=== PATIENT | female | born 1970 | race Caucasian/White ===

== ENCOUNTER 2019-12-14 09:26 | Inpatient (IN) | payer MEDICAID ==
[~2019-12-14] VITALS: Ht 180.3 cm; Wt 107.5 kg
--- NOTE | 2019-12-14 10:15 | NUR ---
"JAUNDICE" SKIN OBJECTIVELY YELLOW TINTED, SCLEARA QUITE DARK. DARK URINE, RIGHT SIDE ABD PAIN. QUIT DRINKING 2 WEEKS AGO DRANK ROUGHLY 2 BOTTLES OF WINE FOR THE LAST 12 YEARS DID NOT DETOX DENIES POTENTIAL HEP C LIFESTYLE EXPOSURE
--- NOTE | 2019-12-14 10:24 | NUR ---
UA OBTAINED PIV STARTED FROM WHICH LABS WERE DRAWN ULTRASOUND AT BEDSIDE AT 1020A
[2019-12-14 10:30] LABS: MEAN CORPUSCULAR HEMOGLOBIN 37.2 pg (27.0-34.8); MEAN CORPUSCULAR HGB CONC 33.6 g/dL (32.4-35.8); MEAN CORPUSCULAR VOLUME 110.7 fL (80-100); MEAN PLATELET VOLUME 8.5 fL (7.4-10.4); PLATELET COUNT 233 x10^3/uL (130-400); RED BLOOD COUNT 3.28 x10^6/uL (3.82-5.3); RED CELL DISTRIBUTION WIDTH 16.2 % (9.6-15.2)
[2019-12-14 10:44] LABS: ALANINE AMINOTRANSFERASE 63 U/L (12-78); ANION GAP 11 mmol/L (5-15); CALCIUM 8.2 mg/dL (8.5-10.1); CHLORIDE 100 mmol/L (98-107)
[2019-12-14 10:47] LABS: MICROSCOPIC INDICATED
[2019-12-14 10:49] LABS: BASOPHILS # (AUTO) 0.01 x10^3/uL (0-0.1); BASOPHILS % (AUTO) 0 % (0-1); EOSINOPHILS # (AUTO) 0.06 x10^3/uL (0-0.4); EOSINOPHILS % (AUTO) 1 % (1-7); LYMPHOCYTES # (AUTO) 1.07 x10^3/uL (1-3.4); LYMPHOCYTES % (AUTO) 9 % (22-44); MD SCAN; MONOCYTES # (AUTO) 1.09 x10^3/uL (0.2-0.8); MONOCYTES % (AUTO) 9 % (2-9); NEUTROPHILS # (AUTO) 10.34 x10^3/uL (1.8-6.8); NEUTROPHILS % (AUTO) 82 % (42-75)
[2019-12-14 10:55] LABS: ALKALINE PHOSPHATASE 155 U/L (45-117)
[2019-12-14 11:00] LABS: BILIRUBIN,TOTAL 25.9 mg/dL (0.2-1.0)
[2019-12-14 11:03] LABS: CREATININE 2.51 mg/dL (0.55-1.02); TOTAL PROTEIN 7.8 g/dL (6.4-8.2)
[2019-12-14] MEDS ORDERED: SODIUM CHLORIDE 0.9% 1,000ML IVBOLUS ONE (12:30)
[2019-12-14] MEDS: SODIUM CHLORIDE 0.9% 1,000 ML IV SCH ×2 (13:00→23:00)
--- NOTE | 2019-12-14 13:08 | NUR ---
Hospitalist at bedside Moved to hospital bed
[2019-12-14] MEDS ORDERED: LORazepam 2 MG/ML, 1ML IVPush PRN ×2 (13:30→15:00)
[2019-12-14] MEDS ORDERED: SODIUM CHLORIDE FLUSH 10ML SYR IVF PRN (13:30)
[2019-12-14] MEDS ORDERED: SODIUM CHLORIDE 0.9% 1,000 ML IV ONE (13:30)
[2019-12-14] MEDS ORDERED: LORazepam 2 MG/ML, 1ML ONE (13:31)
[2019-12-14 13:44] LABS: IRON LEVEL 76 mcg/dL (50-170); TOTAL IRON BINDING CAPACITY 72 mcg/dL (250-450)
[2019-12-14 13:47] LABS: % IRON SATURATION 106 % (20-55)
[2019-12-14] MEDS ORDERED: POTASSIUM CHLORIDE 20 MEQ PACKET ONE (14:34)
[2019-12-14] MEDS: PROPRANOLOL 10 MG TABLET PO SCH ×2 (15:33→21:18)
--- NOTE | 2019-12-14 15:34 | NUR ---
spoke with dr. floyd: Ok to give propanolol (eventhough b/p 100/70, hr 90) as it will help her portal hypertension, patient is allowed to eat (May change once GI sees her), she will order he pain medicine and will change potassium repletion order for dosing now
[2019-12-14] MEDS ORDERED: OXYcodone IR 5MG TABLET ONE (15:38)
--- NOTE | 2019-12-14 15:47 | NUR ---
medicated per emar for abd pain at 12/04
--- NOTE | 2019-12-14 15:50 | NUR ---
attempted to call report x2. Inpatient Rn otherwise occupied. Will try to call back shortly
[2019-12-14] MEDS ORDERED: ONDANSETRON ODT 4 MG PO PRN (16:00)
[2019-12-14] MEDS ORDERED: OXYcodone IR 5MG TABLET PO PRN ×2 (16:00→23:45)
[2019-12-14] MEDS: POTASSIUM CHLORIDE 20 MEQ PACKET PO SCH (16:06)
[2019-12-14] MEDS ORDERED: ALBUMIN HUMAN 25% 100 ML IV ONE (16:30)
[2019-12-14 17:27] LABS: INTERNATIONAL NORMALIZED RATIO 2.25 (0.93-1.1); PROTHROMBIN TIME 23.4 Seconds (9.6-11.5)
[2019-12-14 19:04] VITALS: BP 99/69
[2019-12-15 00:51] VITALS: BP 103/65
[2019-12-15 05:56] LABS: MEAN CORPUSCULAR HEMOGLOBIN 37.2 pg (27.0-34.8); MEAN CORPUSCULAR HGB CONC 33.4 g/dL (32.4-35.8); MEAN CORPUSCULAR VOLUME 111.3 fL (80-100); MEAN PLATELET VOLUME 8.4 fL (7.4-10.4); PLATELET COUNT 189 x10^3/uL (130-400); RED BLOOD COUNT 2.67 x10^6/uL (3.82-5.3); RED CELL DISTRIBUTION WIDTH 15.5 % (9.6-15.2)
[2019-12-15 06:06] LABS: ALBUMIN 1.8 g/dL (3.4-5.0); ANION GAP 8 mmol/L (5-15); CALCIUM 7.3 mg/dL (8.5-10.1); CHLORIDE 100 mmol/L (98-107)
[2019-12-15 06:16] VITALS: BP 100/60
[2019-12-15] MEDS: PROPRANOLOL 10 MG TABLET PO SCH ×3 (06:17→21:03)
[2019-12-15 06:19] LABS: ALANINE AMINOTRANSFERASE 52 U/L (12-78); ALKALINE PHOSPHATASE 122 U/L (45-117)
[2019-12-15 06:24] LABS: TOTAL PROTEIN 6.5 g/dL (6.4-8.2)
[2019-12-15 06:26] LABS: BASOPHILS # (AUTO) 0.18 x10^3/uL (0-0.1); BASOPHILS % (AUTO) 2 % (0-1); EOSINOPHILS # (AUTO) 0.09 x10^3/uL (0-0.4); EOSINOPHILS % (AUTO) 1 % (1-7); LYMPHOCYTES # (AUTO) 1.29 x10^3/uL (1-3.4); LYMPHOCYTES % (AUTO) 12 % (22-44); MD SCAN; MONOCYTES % (AUTO) 13 % (2-9); NEUTROPHILS # (AUTO) 7.68 x10^3/uL (1.8-6.8); NEUTROPHILS % (AUTO) 72 % (42-75)
[2019-12-15] MEDS ORDERED: POTASSIUM CHLORIDE 20 MEQ PACKET PO SCH (08:00)
[2019-12-15] MEDS: POTASSIUM CHLORIDE 20 MEQ PACKET PO SCH (08:52)
[2019-12-15] MEDS: SODIUM CHLORIDE 0.9% 1,000 ML IV SCH ×2 (12:07→21:03)
[2019-12-15 13:14] VITALS: BP 91/55
[2019-12-15 16:20] LABS: POTASSIUM,URINE RANDOM 59 mmol/L
[2019-12-15 16:21] LABS: MICROSCOPIC INDICATED
[2019-12-15 16:43] LABS: CHLORIDE,URINE RANDOM < 10 mmol/L; SODIUM,URINE RANDOM < 5 mmol/L
[2019-12-15 20:25] VITALS: BP 96/59
[2019-12-16 01:34] VITALS: BP 96/58
[2019-12-16 04:52] LABS: BASOPHILS # (AUTO) 0.08 x10^3/uL (0-0.1); BASOPHILS % (AUTO) 1 % (0-1); EOSINOPHILS # (AUTO) 0.04 x10^3/uL (0-0.4); EOSINOPHILS % (AUTO) 0 % (1-7); LYMPHOCYTES # (AUTO) 1.16 x10^3/uL (1-3.4); LYMPHOCYTES % (AUTO) 10 % (22-44); MD NO; MEAN CORPUSCULAR HEMOGLOBIN 38.1 pg (27.0-34.8); MEAN CORPUSCULAR HGB CONC 34.7 g/dL (32.4-35.8); MEAN CORPUSCULAR VOLUME 109.8 fL (80-100); MEAN PLATELET VOLUME 8.9 fL (7.4-10.4); MONOCYTES # (AUTO) 1.39 x10^3/uL (0.2-0.8); MONOCYTES % (AUTO) 12 % (2-9); NEUTROPHILS # (AUTO) 8.97 x10^3/uL (1.8-6.8); NEUTROPHILS % (AUTO) 77 % (42-75); PLATELET COUNT 181 x10^3/uL (130-400); RED BLOOD COUNT 2.82 x10^6/uL (3.82-5.3)
[2019-12-16 05:00] LABS: ALANINE AMINOTRANSFERASE 55 U/L (12-78); ALBUMIN 1.7 g/dL (3.4-5.0); ANION GAP 10 mmol/L (5-15); CALCIUM 7.3 mg/dL (8.5-10.1); CHLORIDE 98 mmol/L (98-107); IRON LEVEL 62 mcg/dL (50-170)
[2019-12-16 05:14] LABS: % IRON SATURATION 91 % (20-55); ALKALINE PHOSPHATASE 125 U/L (45-117); TOTAL IRON BINDING CAPACITY 68 mcg/dL (250-450)
[2019-12-16 05:20] LABS: CREATININE 3.21 mg/dL (0.55-1.02)
[2019-12-16 05:21] LABS: TOTAL PROTEIN 6.5 g/dL (6.4-8.2)
[2019-12-16 05:23] LABS: BILIRUBIN,TOTAL 24.3 mg/dL (0.2-1.0)
[2019-12-16 06:31] VITALS: BP 102/61
[2019-12-16] MEDS: SODIUM CHLORIDE 0.9% 1,000 ML IV SCH (06:33)
[2019-12-16] MEDS: PROPRANOLOL 10 MG TABLET PO SCH (06:34)
[2019-12-16] MEDS: prednisOLONE 15 MG/5 ML ORAL SOLN PO SCH (07:35)
[2019-12-16] MEDS: POTASSIUM CHLORIDE 20 MEQ PACKET PO SCH (09:31)
[2019-12-16] MEDS ORDERED: OCTREOTIDE 500 MCG in SODIUM CHLORIDE 0.9% 99 ML IV PRN (13:30)
[2019-12-16 13:59] VITALS: BP 99/60
[2019-12-16] MEDS ORDERED: OCTREOTIDE 50 MCG/ML, 1ML (0.05MG/ML) IVPush ONE (14:00)
[2019-12-16] MEDS: MIDODRINE 5 MG TABLET PO SCH ×3 (14:01→21:01)
[2019-12-16] MEDS ORDERED: OCTREOTIDE 100MCG/ML, 1ML (0.1MG/ML) IVPush ONE (16:00)
[2019-12-16 19:55] VITALS: BP 105/67
[2019-12-16 20:59] VITALS: BP 107/67
[2019-12-17 01:27] VITALS: BP 93/60
[2019-12-17 06:01] LABS: ALANINE AMINOTRANSFERASE 57 U/L (12-78); ALBUMIN 1.6 g/dL (3.4-5.0); ANION GAP 11 mmol/L (5-15); CALCIUM 7.3 mg/dL (8.5-10.1); CHLORIDE 100 mmol/L (98-107)
[2019-12-17 06:13] LABS: ALKALINE PHOSPHATASE 125 U/L (45-117)
[2019-12-17 06:14] LABS: CREATININE 3.27 mg/dL (0.55-1.02); TOTAL PROTEIN 6.3 g/dL (6.4-8.2)
[2019-12-17 06:16] LABS: BILIRUBIN,TOTAL 22.9 mg/dL (0.2-1.0)
[2019-12-17 07:04] VITALS: BP 102/65
[2019-12-17] MEDS: prednisOLONE 15 MG/5 ML ORAL SOLN PO SCH ×2 (08:00→08:50)
[2019-12-17] MEDS: POTASSIUM CHLORIDE 20 MEQ PACKET PO SCH (08:47)
[2019-12-17] MEDS: MIDODRINE 5 MG TABLET PO SCH ×3 (08:47→22:57)
[2019-12-17 14:30] VITALS: BP 102/66
[2019-12-17 16:02] VITALS: BP 101/62
[2019-12-17] MEDS: OCTREOTIDE 100MCG/ML, 1ML (0.1MG/ML) SQ SCH ×2 (16:49→22:58)
[2019-12-17 20:53] VITALS: BP 107/68
[2019-12-17 22:54] VITALS: BP 103/67
[2019-12-18 01:45] VITALS: BP 112/67
[2019-12-18 05:55] LABS: MEAN CORPUSCULAR HEMOGLOBIN 37.8 pg (27.0-34.8); MEAN CORPUSCULAR HGB CONC 34.4 g/dL (32.4-35.8); MEAN PLATELET VOLUME 8.5 fL (7.4-10.4); PLATELET COUNT 222 x10^3/uL (130-400); RED CELL DISTRIBUTION WIDTH 15.2 % (9.6-15.2)
[2019-12-18 06:02] LABS: ALBUMIN 1.6 g/dL (3.4-5.0); ANION GAP 12 mmol/L (5-15); CALCIUM 7.7 mg/dL (8.5-10.1); CHLORIDE 100 mmol/L (98-107)
[2019-12-18 06:07] LABS: ALANINE AMINOTRANSFERASE 61 U/L (12-78); ALKALINE PHOSPHATASE 121 U/L (45-117)
[2019-12-18 06:13] LABS: CREATININE 2.98 mg/dL (0.55-1.02); TOTAL PROTEIN 6.4 g/dL (6.4-8.2)
[2019-12-18 06:29] LABS: BASOPHILS # (AUTO) 0.04 x10^3/uL (0-0.1); BASOPHILS % (AUTO) 0 % (0-1); EOSINOPHILS # (AUTO) 0.05 x10^3/uL (0-0.4); EOSINOPHILS % (AUTO) 0 % (1-7); LYMPHOCYTES # (AUTO) 1.72 x10^3/uL (1-3.4); LYMPHOCYTES % (AUTO) 12 % (22-44); MD SCAN; MONOCYTES # (AUTO) 1.44 x10^3/uL (0.2-0.8); MONOCYTES % (AUTO) 10 % (2-9); NEUTROPHILS # (AUTO) 11.15 x10^3/uL (1.8-6.8); NEUTROPHILS % (AUTO) 77 % (42-75)
[2019-12-18 07:54] VITALS: BP 98/60
[2019-12-18] MEDS: prednisOLONE 15 MG/5 ML ORAL SOLN PO SCH (09:36)
[2019-12-18] MEDS: MIDODRINE 5 MG TABLET PO SCH ×3 (09:37→20:28)
[2019-12-18] MEDS: OCTREOTIDE 100MCG/ML, 1ML (0.1MG/ML) SQ SCH ×3 (09:37→20:32)
[2019-12-18] MEDS: SODIUM BICARBONATE 650 MG TABLET PO SCH ×2 (12:04→20:28)
[2019-12-18 13:55] VITALS: BP 106/68
[2019-12-18 20:09] VITALS: BP 106/67
[2019-12-19] VITALS (10 sets, daily range): BP systolic 96–126; BP diastolic 59–72
[2019-12-19 05:27] LABS: INTERNATIONAL NORMALIZED RATIO 2.06 (0.93-1.1); PROTHROMBIN TIME 21.4 Seconds (9.6-11.5)
[2019-12-19 05:30] LABS: ANION GAP 11 mmol/L (5-15); CALCIUM 7.8 mg/dL (8.5-10.1); CHLORIDE 101 mmol/L (98-107)
[2019-12-19 05:36] LABS: MEAN CORPUSCULAR HEMOGLOBIN 38.1 pg (27.0-34.8); MEAN PLATELET VOLUME 8.3 fL (7.4-10.4); PLATELET COUNT 219 x10^3/uL (130-400); RED BLOOD COUNT 3.01 x10^6/uL (3.82-5.3); RED CELL DISTRIBUTION WIDTH 14.9 % (9.6-15.2)
[2019-12-19 06:06] LABS: BASOPHILS # (AUTO) 0.05 x10^3/uL (0-0.1); BASOPHILS % (AUTO) 0 % (0-1); EOSINOPHILS % (AUTO) 0 % (1-7); LYMPHOCYTES # (AUTO) 1.29 x10^3/uL (1-3.4); LYMPHOCYTES % (AUTO) 8 % (22-44); MD SCAN; MONOCYTES # (AUTO) 1.75 x10^3/uL (0.2-0.8); MONOCYTES % (AUTO) 11 % (2-9); NEUTROPHILS # (AUTO) 12.31 x10^3/uL (1.8-6.8); NEUTROPHILS % (AUTO) 80 % (42-75)
[2019-12-19 06:11] LABS: CREATININE 2.71 mg/dL (0.55-1.02)
[2019-12-19] MEDS ORDERED: CHLORHEXIDINE 15 ML UDC MM ONE (06:30)
[2019-12-19] MEDS: prednisOLONE 15 MG/5 ML ORAL SOLN PO SCH (08:00)
[2019-12-19] MEDS: MIDODRINE 5 MG TABLET PO SCH ×3 (09:00→21:05)
[2019-12-19] MEDS: OCTREOTIDE 100MCG/ML, 1ML (0.1MG/ML) SQ SCH ×3 (09:00→21:06)
[2019-12-19] MEDS: SODIUM BICARBONATE 650 MG TABLET PO SCH ×2 (09:00→21:05)
[2019-12-19] MEDS ORDERED: PROPOFOL 10 MG/ML, 20ML ONE (09:31)
[2019-12-20 01:00] VITALS: BP 107/56
[2019-12-20 06:06] LABS: CHLORIDE 105 mmol/L (98-107)
[2019-12-20 06:09] LABS: MEAN CORPUSCULAR HEMOGLOBIN 37.7 pg (27.0-34.8); MEAN CORPUSCULAR HGB CONC 33.7 g/dL (32.4-35.8); MEAN CORPUSCULAR VOLUME 111.8 fL (80-100); MEAN PLATELET VOLUME 8.1 fL (7.4-10.4); PLATELET COUNT 156 x10^3/uL (130-400); RED BLOOD COUNT 2.67 x10^6/uL (3.82-5.3); RED CELL DISTRIBUTION WIDTH 15.3 % (9.6-15.2)
[2019-12-20 06:15] LABS: ALANINE AMINOTRANSFERASE 64 U/L (12-78); ALBUMIN 1.7 g/dL (3.4-5.0); ALKALINE PHOSPHATASE 112 U/L (45-117); ANION GAP 11 mmol/L (5-15); CALCIUM 7.9 mg/dL (8.5-10.1)
[2019-12-20 06:18] LABS: CREATININE 2.26 mg/dL (0.55-1.02); TOTAL PROTEIN 5.9 g/dL (6.4-8.2)
[2019-12-20 06:35] LABS: BASOPHILS # (AUTO) 0.05 x10^3/uL (0-0.1); BASOPHILS % (AUTO) 1 % (0-1); EOSINOPHILS # (AUTO) 0.05 x10^3/uL (0-0.4); EOSINOPHILS % (AUTO) 1 % (1-7); LYMPHOCYTES # (AUTO) 1.56 x10^3/uL (1-3.4); LYMPHOCYTES % (AUTO) 16 % (22-44); MD SCAN; MONOCYTES # (AUTO) 0.86 x10^3/uL (0.2-0.8); MONOCYTES % (AUTO) 9 % (2-9); NEUTROPHILS % (AUTO) 74 % (42-75)
[2019-12-20 08:42] VITALS: BP 105/64
[2019-12-20] MEDS: MIDODRINE 5 MG TABLET PO SCH ×3 (09:19→20:47)
[2019-12-20] MEDS: prednisOLONE 15 MG/5 ML ORAL SOLN PO SCH (09:19)
[2019-12-20] MEDS: OCTREOTIDE 100MCG/ML, 1ML (0.1MG/ML) SQ SCH ×3 (09:19→20:47)
[2019-12-20] MEDS: SODIUM BICARBONATE 650 MG TABLET PO SCH ×2 (09:20→20:47)
[2019-12-20] MEDS: POTASSIUM CHLORIDE 20 MEQ TAB.ER.PRT PO SCH (11:10)
[2019-12-20 13:42] VITALS: BP 109/68
[2019-12-20] MEDS ORDERED: SODI650T PO (16:17)
[2019-12-20] MEDS ORDERED: MIDO5TAB9 PO (16:17)
[2019-12-20] MEDS ORDERED: OCTR100V SQ (16:17)
[2019-12-20] MEDS ORDERED: PRED15SO3 PO (16:17)
[2019-12-20 19:36] VITALS: BP 120/69
[2019-12-21 00:55] VITALS: BP 127/69
[2019-12-21 06:18] LABS: ANION GAP 9 mmol/L (5-15); CALCIUM 8.4 mg/dL (8.5-10.1); CHLORIDE 109 mmol/L (98-107)
[2019-12-21 06:25] LABS: MEAN CORPUSCULAR HEMOGLOBIN 37.4 pg (27.0-34.8); MEAN CORPUSCULAR HGB CONC 33.8 g/dL (32.4-35.8); MEAN CORPUSCULAR VOLUME 110.4 fL (80-100); MEAN PLATELET VOLUME 8.3 fL (7.4-10.4); PLATELET COUNT 145 x10^3/uL (130-400); RED BLOOD COUNT 2.83 x10^6/uL (3.82-5.3); RED CELL DISTRIBUTION WIDTH 15.1 % (9.6-15.2)
[2019-12-21 06:27] LABS: CREATININE 2.02 mg/dL (0.55-1.02)
[2019-12-21 07:35] LABS: BASOPHILS # (AUTO) 0.04 x10^3/uL (0-0.1); BASOPHILS % (AUTO) 0 % (0-1); EOSINOPHILS # (AUTO) 0.01 x10^3/uL (0-0.4); EOSINOPHILS % (AUTO) 0 % (1-7); LYMPHOCYTES # (AUTO) 2.49 x10^3/uL (1-3.4); LYMPHOCYTES % (AUTO) 19 % (22-44); MD SCAN; MONOCYTES # (AUTO) 1.12 x10^3/uL (0.2-0.8); MONOCYTES % (AUTO) 8 % (2-9); NEUTROPHILS # (AUTO) 9.73 x10^3/uL (1.8-6.8); NEUTROPHILS % (AUTO) 73 % (42-75)
[2019-12-21 08:06] VITALS: BP 111/65
[2019-12-21] MEDS: POTASSIUM CHLORIDE 20 MEQ TAB.ER.PRT PO SCH (09:32)
[2019-12-21] MEDS: MIDODRINE 5 MG TABLET PO SCH ×3 (09:32→20:53)
[2019-12-21] MEDS: prednisOLONE 15 MG/5 ML ORAL SOLN PO SCH (09:33)
[2019-12-21] MEDS: SODIUM BICARBONATE 650 MG TABLET PO SCH ×2 (09:33→20:53)
[2019-12-21] MEDS: OCTREOTIDE 100MCG/ML, 1ML (0.1MG/ML) SQ SCH ×3 (09:33→20:52)
[2019-12-21] MEDS ORDERED: ALPR0.5T6 PO (11:55)
[2019-12-21 13:58] VITALS: BP 121/72
[2019-12-21 20:35] VITALS: BP 145/87
[2019-12-22 01:00] VITALS: BP 127/79
[2019-12-22 08:44] VITALS: BP 115/72
[2019-12-22] MEDS: prednisOLONE 15 MG/5 ML ORAL SOLN PO SCH (10:28)
[2019-12-22] MEDS: OCTREOTIDE 100MCG/ML, 1ML (0.1MG/ML) SQ SCH ×2 (10:28→18:15)
[2019-12-22] MEDS: SODIUM BICARBONATE 650 MG TABLET PO SCH ×2 (10:29→21:38)
[2019-12-22] MEDS: MIDODRINE 5 MG TABLET PO SCH ×2 (10:29→18:14)
[2019-12-22] MEDS: POTASSIUM CHLORIDE 20 MEQ TAB.ER.PRT PO SCH (10:29)
[2019-12-22 15:29] VITALS: BP 130/80
[2019-12-22 19:17] VITALS: BP 148/84
[2019-12-23 00:22] VITALS: BP 129/75
[2019-12-23] MEDS: OCTREOTIDE 100MCG/ML, 1ML (0.1MG/ML) SQ SCH ×2 (00:24→09:58)
[2019-12-23] MEDS: MIDODRINE 5 MG TABLET PO SCH ×2 (00:24→09:59)
[2019-12-23 08:00] VITALS: BP 122/74
[2019-12-23] MEDS: SODIUM BICARBONATE 650 MG TABLET PO SCH (09:59)
[2019-12-23] MEDS: prednisOLONE 15 MG/5 ML ORAL SOLN PO SCH (10:00)
[2019-12-23 10:30] VITALS: BP 122/74
== END 2019-12-23 11:50 | disposition home or self-care (01) | DRG 432 ==
LOC: ED 10:52 → EDIP 12:41 → SUATTDRO 12:54 → 3N 16:12 → DCLOUNGE 12-23 11:42
PROVIDERS: ADMIT Hospitalist; ATTEND Family Medicine
PROC: 0DJ08ZZ Inspection of Upper Intestinal Tract, Via Natural or Artificial Opening Endoscopic (ICD-10-PCS; 2019-12-19)
PROC: 30233K1 Transfusion of Nonautologous Frozen Plasma into Peripheral Vein, Percutaneous Approach (ICD-10-PCS; principal; 2019-12-19 09:00)
DX: K70.40 Alcoholic hepatic failure without coma (principal); K76.7 Hepatorenal syndrome; K76.6 Portal hypertension; N17.9 Acute kidney failure, unspecified; E46 Unspecified protein-calorie malnutrition; E87.1 Hypo-osmolality and hyponatremia; E87.2 Acidosis; I85.10 Secondary esophageal varices without bleeding; D64.9 Anemia, unspecified; D72.829 Elevated white blood cell count, unspecified; E87.6 Hypokalemia; F10.20 Alcohol dependence, uncomplicated; F41.9 Anxiety disorder, unspecified; I10 Essential (primary) hypertension; K31.89 Other diseases of stomach and duodenum; K70.11 Alcoholic hepatitis with ascites; K74.60 Unspecified cirrhosis of liver; K80.20 Calculus of gallbladder without cholecystitis without obstruction; Z20.828 Contact with and (suspected) exposure to other viral communicable diseases; Z82.49 Family history of ischemic heart disease and other diseases of the circulatory system; Z84.89 Family history of other specified conditions
CPT/HCPCS: 36415; 76700; 80048; 80053; 80074; 81001; 82103; 82390; 82436; 82570; 82728; 83516; 83540; 83550; 83690; 83735; 83930; 83935; 84100; 84133; 84156; 84300; 85025; 85610; 86850; 86900; 87086; 87635; G0378; J2354; J2704; P9047; J2060; J7030; J7510; P9017

== ENCOUNTER 2019-12-28 12:08 | Emergency (ER) | payer MEDICAID ==
[~2019-12-28] VITALS: Ht 180.3 cm; Wt 106.2 kg
[~2019-12-28 12:08] MED LIST: ALPR0.5T6 PO; MIDO5TAB9 PO; OCTR100V SQ; PRED15SO3 PO; SODI650T PO
--- NOTE | 2019-12-28 12:52 | NUR ---
PT WAS D/C 12/22 FOR ACUTE RENAL FAILURE, ACUTE ALCOHOLIC HEPATITIS. PT STATES SHE QUIT DRINKING 1 MO. AGO. C/O INCREASED EDEMA SHERICE LE AND ABD, INCREASED YELLOWING OF SKIN. YUNI ENRIQUE AT BEDSIDE WITH DR MONZON. PT ASSESSMENT REVEIWED, POC DISCUSSED AND QUESTIONS ANSWERED. ALL MONITORS IN PLACE, CALL LIGHT W/I REACH.
[2019-12-28] MEDS ORDERED: MORPHINE SULFATE 4 MG/ML, 1ML IVPush PRN (13:00)
[2019-12-28] MEDS ORDERED: ONDANSETRON 2MG/ML, 2ML IVPush ONE (13:00)
[2019-12-28] MEDS ORDERED: SODIUM CHLORIDE FLUSH 10ML SYR IVF ONE (13:00)
--- NOTE | 2019-12-28 13:03 | NUR ---
PT OOB AMBULATES TO BATHROOM, UPRIGHT STEADY GAIT. INSTRUCTED ON COLLECTION OF URINE SAMPLE
[2019-12-28] MEDS ORDERED: MORPHINE SULFATE 4 MG/ML, 1ML ONE (13:06)
[2019-12-28] MEDS ORDERED: ONDANSETRON 2MG/ML, 2ML ONE (13:06)
[2019-12-28 13:08] LABS: MEAN CORPUSCULAR HGB CONC 33.3 g/dL (32.4-35.8); MEAN CORPUSCULAR VOLUME 111.1 fL (80-100); MEAN PLATELET VOLUME 8.6 fL (7.4-10.4); PLATELET COUNT 104 x10^3/uL (130-400); RED BLOOD COUNT 2.88 x10^6/uL (3.82-5.3); RED CELL DISTRIBUTION WIDTH 15.3 % (9.6-15.2)
--- NOTE | 2019-12-28 13:10 | NUR ---
PT RTD FROM BATHROOM. URINE SENT TO LAB. PT MED NOTED FOR PAIN 09/03. CALL LIGHT W/I REACH. SBAR RPT TO PEG MARTELL
[2019-12-28 13:19] LABS: ALANINE AMINOTRANSFERASE 89 U/L (12-78); ANION GAP 9 mmol/L (5-15); CALCIUM 8.4 mg/dL (8.5-10.1); CHLORIDE 108 mmol/L (98-107); CREATININE 1.17 mg/dL (0.55-1.02)
[2019-12-28 13:22] LABS: ALKALINE PHOSPHATASE 136 U/L (45-117); TOTAL PROTEIN 6.6 g/dL (6.4-8.2)
[2019-12-28 13:23] LABS: INTERNATIONAL NORMALIZED RATIO 1.98 (0.93-1.1); PROTHROMBIN TIME 20.5 Seconds (9.6-11.5)
[2019-12-28 13:27] LABS: BILIRUBIN,TOTAL 15.7 mg/dL (0.2-1.0)
[2019-12-28 13:32] LABS: BASOPHILS # (AUTO) 0.01 x10^3/uL (0-0.1); BASOPHILS % (AUTO) 0 % (0-1); EOSINOPHILS % (AUTO) 1 % (1-7); LYMPHOCYTES % (AUTO) 3 % (22-44); MD SCAN; MONOCYTES # (AUTO) 1.01 x10^3/uL (0.2-0.8); MONOCYTES % (AUTO) 6 % (2-9); NEUTROPHILS # (AUTO) 15.97 x10^3/uL (1.8-6.8); NEUTROPHILS % (AUTO) 90 % (42-75)
[2019-12-28 13:59] LABS: MICROSCOPIC INDICATED
[2019-12-28] MEDS ORDERED: POTASSIUM CHLORIDE 20 MEQ TAB.ER.PRT PO ONE (14:00)
[2019-12-28] MEDS ORDERED: FUROSEMIDE 40 MG/4 ML IV ONE (14:00)
--- NOTE | 2019-12-28 14:00 | NUR ---
PT READING A BOOK, NO DISTRESS
[2019-12-28] MEDS ORDERED: FUROSEMIDE 40 MG/4 ML ONE (14:29)
[2019-12-28] MEDS ORDERED: POTASSIUM CHLORIDE 20 MEQ TAB.ER.PRT ONE (14:29)
[2019-12-28 15:01] VITALS: BP 122/68
--- NOTE | 2019-12-28 15:02 | NUR ---
MEDICATED NOTED ON JUN AND GAVE TEACHING ABOUT LASIX. TO BE DISCHARGED
== END 2019-12-28 15:16 | disposition home or self-care (01) ==
LOC: ED 13:03
DX: K70.10 Alcoholic hepatitis without ascites (principal); R94.31 Abnormal electrocardiogram [ECG] [EKG]; R10.9 Unspecified abdominal pain; N17.9 Acute kidney failure, unspecified; R10.84 Generalized abdominal pain; R06.02 Shortness of breath; R60.0 Localized edema; M79.89 Other specified soft tissue disorders; Z79.899 Other long term (current) drug therapy
CPT/HCPCS: 36415; 71045; 80053; 81001; 82140; 83690; 83735; 85025; 85610; 87086; 93005; 96374; 96375; 99285; J1940; J2270; J2405

== ENCOUNTER 2020-01-02 09:00 | Emergency (ER) | payer MEDICAID ==
[~2020-01-02] VITALS: Ht 180.3 cm; Wt 101.5 kg
--- NOTE | 2020-01-02 09:10 | NUR ---
PT AMBULATED TO THE ROOM W/ A STEADY GAIT.
--- NOTE | 2020-01-02 09:35 | NUR ---
THIS IS A 49 YO F W/ C/O LT EAR PAIN AND HEAD PRESSURE X1.5 WEEKS. PT ALSO REPORTS C/O LOOSE STOOLS BUT IS PRIMARILY CONCERNED W/ EAR PAIN AND HEARING LOSS. PT RESTING ON [employer] W/ CALL LIGHT IN REACH AND SIDE RAILS UPX2. PROVIDED WARM BLANKET AND LIGHTS TURNED DOWN FOR COMFORT. RESP EVEN AND UNLABORED, NADN. AWAITING ORDERS.
[2020-01-02] MEDS ORDERED: AMOXICILLIN 500 MG CAPSULE PO ONE (10:30)
[2020-01-02] MEDS ORDERED: HYDROcodone/APAP 5/325 TABLET PO ONE (10:30)
[2020-01-02 10:32] LABS: MEAN CORPUSCULAR HEMOGLOBIN 38.1 pg (27.0-34.8); MEAN CORPUSCULAR HGB CONC 34.4 g/dL (32.4-35.8); MEAN CORPUSCULAR VOLUME 110.8 fL (80-100); MEAN PLATELET VOLUME 8.4 fL (7.4-10.4); PLATELET COUNT 125 x10^3/uL (130-400); RED BLOOD COUNT 2.69 x10^6/uL (3.82-5.3); RED CELL DISTRIBUTION WIDTH 14.7 % (9.6-15.2)
--- NOTE | 2020-01-02 10:40 | NUR ---
PT AMBULATED TO THE BR W/ A STEADY GAIT. PROVIDED URINE CUP FOR SAMPLE.
[2020-01-02 10:42] LABS: ALANINE AMINOTRANSFERASE 79 U/L (12-78); ANION GAP 8 mmol/L (5-15); CALCIUM 8.3 mg/dL (8.5-10.1); CHLORIDE 105 mmol/L (98-107); CREATININE 0.91 mg/dL (0.55-1.02)
[2020-01-02 10:45] LABS: ALKALINE PHOSPHATASE 129 U/L (45-117); BILIRUBIN,TOTAL 14.2 mg/dL (0.2-1.0); TOTAL PROTEIN 6.3 g/dL (6.4-8.2)
--- NOTE | 2020-01-02 10:45 | NUR ---
URINE COLLECTED AND SENT TO LAB.
[2020-01-02 10:55] VITALS: BP 104/74
[2020-01-02 10:58] LABS: BASOPHILS # (AUTO) 0.01 x10^3/uL (0-0.1); BASOPHILS % (AUTO) 0 % (0-1); EOSINOPHILS # (AUTO) 0.14 x10^3/uL (0-0.4); EOSINOPHILS % (AUTO) 1 % (1-7); LYMPHOCYTES # (AUTO) 1.65 x10^3/uL (1-3.4); LYMPHOCYTES % (AUTO) 11 % (22-44); MD SCAN; MONOCYTES # (AUTO) 0.24 x10^3/uL (0.2-0.8); MONOCYTES % (AUTO) 2 % (2-9); NEUTROPHILS % (AUTO) 87 % (42-75)
--- NOTE | 2020-01-02 11:05 | NUR ---
PT RESTING ON [employer] W/ CALL LIGHT IN REACH, VSS, NADN. ALL TESTS RESULTED. PT IS UP FOR RECHECK AT THIS TIME.
[2020-01-02] MEDS ORDERED: AMOXICILLIN 500 MG CAPSULE ONE (11:14)
[2020-01-02] MEDS ORDERED: HYDROcodone/APAP 5/325 TABLET ONE (11:14)
--- NOTE | 2020-01-02 11:37 | NUR ---
Patient given discharge instructions and they have confirmed that they understand the instructions. Patient ambulatory with steady gait.
== END 2020-01-02 11:39 | disposition home or self-care (01) ==
LOC: ED 09:45
DX: K70.10 Alcoholic hepatitis without ascites (principal); I85.00 Esophageal varices without bleeding; H66.42 Suppurative otitis media, unspecified, left ear
CPT/HCPCS: 36415; 80053; 82570; 84156; 85025; 99283

== ENCOUNTER 2020-01-10 10:57 | Inpatient (IN) | payer MEDICAID ==
[~2020-01-10] VITALS: Ht 180.3 cm; Wt 95.4 kg
[2020-01-10] MEDS ORDERED: ONDANSETRON 2MG/ML, 2ML IVPush ONE (12:00)
[2020-01-10] MEDS ORDERED: SODIUM CHLORIDE FLUSH 10ML SYR IVF ONE (12:00)
[2020-01-10] MEDS ORDERED: HYDROmorphone 2 MG/ML, 1ML IVPush PRN (12:00)
[2020-01-10] MEDS ORDERED: SODIUM CHLORIDE 0.9% 1,000ML IVBOLUS ONE ×2 (12:00→15:00)
--- NOTE | 2020-01-10 12:00 | NUR ---
piv est/labs sent/meds per mar. ivf per mar/discussed w/ provider. vss. a&ox4 gcs 15. probably admit. as
[2020-01-10] MEDS ORDERED: HYDROmorphone 2 MG/ML, 1ML ONE (12:02)
[2020-01-10] MEDS ORDERED: ONDANSETRON 2MG/ML, 2ML ONE (12:02)
[2020-01-10] MEDS ORDERED: LIDOCAINE 1%, 10ML ONE (12:02)
[2020-01-10 12:28] LABS: MEAN CORPUSCULAR HGB CONC 32.9 g/dL (32.4-35.8); MEAN CORPUSCULAR VOLUME 112.3 fL (80-100); MEAN PLATELET VOLUME 7.4 fL (7.4-10.4); PLATELET COUNT 181 x10^3/uL (130-400); RED BLOOD COUNT 3.13 x10^6/uL (3.82-5.3); RED CELL DISTRIBUTION WIDTH 14.7 % (9.6-15.2)
--- NOTE | 2020-01-10 12:35 | NUR ---
pt to IR. as
[2020-01-10 12:36] LABS: ANION GAP 12 mmol/L (5-15); CALCIUM 8.5 mg/dL (8.5-10.1); CHLORIDE 107 mmol/L (98-107)
[2020-01-10 12:38] LABS: ALANINE AMINOTRANSFERASE 44 U/L (12-78); ALKALINE PHOSPHATASE 163 U/L (45-117); BILIRUBIN,TOTAL 14.7 mg/dL (0.2-1.0); CREATININE 1.04 mg/dL (0.55-1.02)
[2020-01-10 13:20] LABS: MD YES
[2020-01-10 13:22] LABS: BAND#(MANUAL) 1.08 x10^3/uL; BANDS%(MANUAL) 12 % (0-7); EOS#(MANUAL) 0.09 x10^3/uL (0.0-0.4); EOS% (MANUAL) 1 % (1-7); LYMPH#(MANUAL) 0.18 x10^3/uL (1-3.4); LYMPHS% (MANUAL) 2 % (22-44); METAMYELOCYTES# (MANUAL) 0.27 x10^3/uL (0-0); METAMYELOCYTES% (MANUAL) 3 % (0-1); MONOS#(MANUAL) 0.36 x10^3/uL (0.3-2.7); MONOS% (MANUAL) 4 % (2-9); SEG#(MANUAL) 7.02 x10^3/uL (1.8-6.8); SEGS% (MANUAL) 78 % (42-75)
[2020-01-10 13:23] LABS: TEAR DROPS 1+
[2020-01-10 13:27] LABS: <PLATELET ESTIMATE> ADEQUATE
[2020-01-10 13:28] LABS: <PLT MORPHOLOGY> NORMAL PLT MORPH
--- NOTE | 2020-01-10 13:29 | NUR ---
lactic acid 5.4 discussed w melba plan pending. as
[2020-01-10 13:30] LABS: POLYCHROMASIA 1+
--- NOTE | 2020-01-10 13:31 | NUR ---
pericentesis 4.5 L. as
[2020-01-10] MEDS ORDERED: ALBUMIN HUMAN 25% 100 ML IV ONE (14:00)
--- NOTE | 2020-01-10 14:01 | NUR ---
discussed lactic w/ melba. NOT following sepsis workup, most likely d/t vomiting. plan for albumin and admit. as
--- NOTE | 2020-01-10 14:14 | NUR ---
req albumin from [email or web address]
--- NOTE | 2020-01-10 14:39 | NUR ---
ALBUMIN PER MAR. PT AWARE OF POC. NAD.
--- NOTE | 2020-01-10 15:28 | NUR ---
given water per md. awaiting bed. nad. as
--- NOTE | 2020-01-10 15:40 | NUR ---
discussed ns bolus w dr reilly. plan ns boluses d/t lactic. no blood cultures per md. as
[2020-01-10] MEDS ORDERED: ACETAMINOPHEN 325 MG TABLET PO PRN (16:00)
[2020-01-10] MEDS ORDERED: POTASSIUM CHLORIDE 20 MEQ TAB.ER.PRT PO ONE (16:00)
[2020-01-10] MEDS ORDERED: ENALAPRILAT 1.25 MG/ML, 2ML IVPush PRN (16:00)
[2020-01-10] MEDS ORDERED: MELATONIN 5 MG TABLET PO PRN (16:00)
[2020-01-10] MEDS ORDERED: ONDANSETRON 2MG/ML, 2ML IVPush PRN (16:00)
[2020-01-10] MEDS ORDERED: ONDANSETRON ODT 4 MG PO PRN (16:00)
--- NOTE | 2020-01-10 16:00 | NUR ---
attempt x2 for report. as
--- NOTE | 2020-01-10 16:17 | NUR ---
report to yolanda devi. as
[2020-01-10 19:50] VITALS: BP 117/69
[2020-01-10 20:07] VITALS: BP 114/67
[2020-01-10 20:10] VITALS: BP 120/75
[2020-01-10] MEDS ORDERED: AMOXICILLIN 500 MG CAPSULE PO SCH (21:00)
[2020-01-11 00:57] VITALS: BP 112/70
[2020-01-11 06:31] LABS: ANION GAP 9 mmol/L (5-15); CALCIUM 8.1 mg/dL (8.5-10.1); CHLORIDE 109 mmol/L (98-107)
[2020-01-11 06:43] VITALS: BP 101/50
[2020-01-11] MEDS: SPIRONOLACTONE 25 MG TABLET PO SCH (08:02)
[2020-01-11] MEDS: FUROSEMIDE 20 MG TABLET PO SCH (08:02)
[2020-01-11] MEDS ORDERED: AMOXICILLIN/CLAV 875-125MG TABLET PO SCH (09:00)
[2020-01-11] MEDS: CEFTRIAXONE PMX 2GM/50ML 50 ML IV SCH (12:00)
[2020-01-11] MEDS: HYDROCORTISONE 25 MG SUPP PR SCH ×2 (12:00→22:02)
[2020-01-11] MEDS: HYDROcodone/APAP 5/325 TABLET PO PRN (12:04)
[2020-01-11 12:59] VITALS: BP 114/68
[2020-01-11 13:21] LABS: CLOSTRIDIUM DIFFICILE ANTIGEN NEGATIVE; CLOSTRIDIUM DIFFICILE TOXIN NEGATIVE (Negative)
[2020-01-11 19:16] VITALS: BP 122/73
[2020-01-12 01:30] VITALS: BP 119/67
[2020-01-12 05:52] LABS: CHLORIDE 109 mmol/L (98-107)
[2020-01-12 06:04] LABS: MEAN CORPUSCULAR HEMOGLOBIN 36.7 pg (27.0-34.8); MEAN CORPUSCULAR HGB CONC 33.1 g/dL (32.4-35.8); MEAN CORPUSCULAR VOLUME 110.6 fL (80-100); MEAN PLATELET VOLUME 7.2 fL (7.4-10.4); PLATELET COUNT 137 x10^3/uL (130-400); RED BLOOD COUNT 2.59 x10^6/uL (3.82-5.3); RED CELL DISTRIBUTION WIDTH 14.1 % (9.6-15.2)
[2020-01-12 06:12] LABS: ANION GAP 10 mmol/L (5-15); CALCIUM 7.9 mg/dL (8.5-10.1)
[2020-01-12 06:47] LABS: MD YES
[2020-01-12 06:50] LABS: <PLATELET ESTIMATE> DECREASED; <PLT MORPHOLOGY> NORMAL PLT MORPH; ANISOCYTOSIS 1+; BAND#(MANUAL) 0.68 x10^3/uL; BANDS%(MANUAL) 6 % (0-7); EOS#(MANUAL) 0.34 x10^3/uL (0.0-0.4); EOS% (MANUAL) 3 % (1-7); LYMPH#(MANUAL) 1.71 x10^3/uL (1-3.4); LYMPHS% (MANUAL) 15 % (22-44); MONOS#(MANUAL) 0.91 x10^3/uL (0.3-2.7); MONOS% (MANUAL) 8 % (2-9); MYELOCYTES# (MANUAL) 0.11 x10^3/uL (0-0); MYELOCYTES% (MANUAL) 1 % (0-0); POLYCHROMASIA 1+; SEG#(MANUAL) 7.64 x10^3/uL (1.8-6.8); SEGS% (MANUAL) 67 % (42-75)
[2020-01-12 08:05] VITALS: BP 123/73
[2020-01-12] MEDS: LOPERAMIDE 2 MG CAPSULE PO SCH ×3 (08:10→20:38)
[2020-01-12] MEDS: SPIRONOLACTONE 25 MG TABLET PO SCH (08:10)
[2020-01-12] MEDS: POTASSIUM CHLORIDE 20 MEQ TAB.ER.PRT PO SCH ×2 (08:10→16:42)
[2020-01-12] MEDS: FUROSEMIDE 20 MG TABLET PO SCH (08:10)
[2020-01-12] MEDS: HYDROCORTISONE 25 MG SUPP PR SCH ×2 (08:18→20:37)
[2020-01-12] MEDS: CEFTRIAXONE PMX 2GM/50ML 50 ML IV SCH (12:35)
[2020-01-12 14:20] VITALS: BP 126/72
[2020-01-12 19:16] VITALS: BP 126/76
[2020-01-12] MEDS: HYDROcodone/APAP 5/325 TABLET PO PRN (20:38)
[2020-01-13 00:56] VITALS: BP 123/68
[2020-01-13] MEDS: LOPERAMIDE 2 MG CAPSULE PO SCH ×2 (02:51→08:15)
[2020-01-13 04:55] LABS: ANION GAP 11 mmol/L (5-15); CALCIUM 8.2 mg/dL (8.5-10.1); CHLORIDE 114 mmol/L (98-107)
[2020-01-13 04:56] LABS: CREATININE 0.71 mg/dL (0.55-1.02)
[2020-01-13 05:04] LABS: MEAN CORPUSCULAR HEMOGLOBIN 36.2 pg (27.0-34.8); MEAN CORPUSCULAR HGB CONC 32.5 g/dL (32.4-35.8); MEAN CORPUSCULAR VOLUME 111.3 fL (80-100); MEAN PLATELET VOLUME 7.1 fL (7.4-10.4); PLATELET COUNT 148 x10^3/uL (130-400); RED BLOOD COUNT 2.69 x10^6/uL (3.82-5.3); RED CELL DISTRIBUTION WIDTH 13.7 % (9.6-15.2)
[2020-01-13 05:46] LABS: BASOPHILS % (AUTO) 1 % (0-1); EOSINOPHILS # (AUTO) 0.11 x10^3/uL (0-0.4); EOSINOPHILS % (AUTO) 1 % (1-7); LYMPHOCYTES # (AUTO) 1.81 x10^3/uL (1-3.4); LYMPHOCYTES % (AUTO) 18 % (22-44); MD SCAN; MONOCYTES # (AUTO) 1.22 x10^3/uL (0.2-0.8); MONOCYTES % (AUTO) 12 % (2-9); NEUTROPHILS # (AUTO) 6.93 x10^3/uL (1.8-6.8); NEUTROPHILS % (AUTO) 68 % (42-75)
[2020-01-13 07:04] VITALS: BP 135/83
[2020-01-13] MEDS: POTASSIUM CHLORIDE 20 MEQ TAB.ER.PRT PO SCH (08:15)
[2020-01-13] MEDS ORDERED: POTA20TA6 PO (08:30)
[2020-01-13] MEDS ORDERED: LOPE2CAP PO (08:30)
[2020-01-13] MEDS ORDERED: SPIR25TA PO (08:30)
[2020-01-13] MEDS ORDERED: HYDR25SU3 PR (08:30)
[2020-01-13] MEDS ORDERED: FURO20TA3 PO (08:30)
[2020-01-13] MEDS: HYDROCORTISONE 25 MG SUPP PR SCH (08:42)
[2020-01-13] MEDS: SPIRONOLACTONE 25 MG TABLET PO SCH (08:42)
[2020-01-13] MEDS: FUROSEMIDE 20 MG TABLET PO SCH (08:42)
[2020-01-13] MEDS ORDERED: AMOX1TAB64 PO (08:43)
== END 2020-01-13 10:51 | disposition home or self-care (01) | DRG 432 ==
LOC: ED 12:00 → INTOOBSV 14:46 → EDIP 14:46 → 3N 17:03 → OBSVTOIN 01-11 09:25 → DCLOUNGE 01-13 10:40
PROVIDERS: ADMIT Family Medicine; ATTEND Hospitalist
PROC: 0W9G30Z Drainage of Peritoneal Cavity with Drainage Device, Percutaneous Approach (ICD-10-PCS; principal; 2020-01-10)
DX: K70.40 Alcoholic hepatic failure without coma (principal); K65.2 Spontaneous bacterial peritonitis; N17.0 Acute kidney failure with tubular necrosis; D64.9 Anemia, unspecified; E87.6 Hypokalemia; F41.9 Anxiety disorder, unspecified; K64.9 Unspecified hemorrhoids; K70.11 Alcoholic hepatitis with ascites; K70.31 Alcoholic cirrhosis of liver with ascites; F10.21 Alcohol dependence, in remission; Y90.9 Presence of alcohol in blood, level not specified
CPT/HCPCS: 36415; 82042; 89051; 96361; 96374; 96375; 99285; J3490; 49083; 74176; 80048; 80053; 83605; 83615; 83690; 83735; 85025; 87070; 87205; 87324; 93005; G0378; J0696; J1170; J2405; P9047; J7030; J7512

== ENCOUNTER 2020-02-24 12:55 | Emergency (ER) | payer MEDICAID ==
[~2020-02-24] VITALS: Ht 180.3 cm; Wt 81.6 kg
[~2020-02-24 12:55] MED LIST changes: +AMOX1TAB64 PO; +FURO20TA3 PO; +HYDR25SU3 PR; +LOPE2CAP PO; +POTA20TA6 PO; +SPIR25TA PO
[2020-02-24] MEDS ORDERED: SODIUM CHLORIDE FLUSH 10ML SYR IVF ONE (13:30)
--- NOTE | 2020-02-24 13:30 | NUR ---
PT AMBULATED TO BR WITH STEADY GAIT. URINE COLLECTED/SENT TO LAB. WARM BLANKET, RAVINDER WARMER IN PLACE. PT C/O LOSING 3LBS/DAY AND ABD DISTENTION. PT SEES CARDIOTHORACIC ANESTHESIA TECHNICIAN AND GI MD WITH NEXT APPT IN FEBRUARY. LAST PARACENTESIS 2019. . CALL LIGHT WITHIN REACH, AWAITING FURTHER ORDERS.
[2020-02-24 13:42] LABS: BASOPHILS % (AUTO) 1 % (0-1); EOSINOPHILS % (AUTO) 3 % (1-7); LYMPHOCYTES % (AUTO) 10 % (22-44); MEAN CORPUSCULAR HEMOGLOBIN 32.3 pg (27.0-34.8); MEAN CORPUSCULAR HGB CONC 33.3 g/dL (32.4-35.8); MEAN PLATELET VOLUME 7.2 fL (7.4-10.4); MONOCYTES % (AUTO) 7 % (2-9); NEUTROPHILS % (AUTO) 79 % (42-75); PLATELET COUNT 204 x10^3/uL (130-400); RED BLOOD COUNT 4.05 x10^6/uL (3.82-5.3); RED CELL DISTRIBUTION WIDTH 13.6 % (9.6-15.2)
[2020-02-24 13:46] LABS: INTERNATIONAL NORMALIZED RATIO 1.63 (0.93-1.1); MD NO; PROTHROMBIN TIME 17.2 Seconds (9.6-11.5)
[2020-02-24 13:49] LABS: ALBUMIN 2.9 g/dL (3.4-5.0); ANION GAP 11 mmol/L (5-15); CALCIUM 8.4 mg/dL (8.5-10.1); CHLORIDE 107 mmol/L (98-107)
[2020-02-24 13:54] LABS: ALANINE AMINOTRANSFERASE 23 U/L (12-78); ALKALINE PHOSPHATASE 162 U/L (45-117); BILIRUBIN,TOTAL 3.6 mg/dL (0.2-1.0); CREATININE 0.73 mg/dL (0.55-1.02); TOTAL PROTEIN 8.2 g/dL (6.4-8.2)
[2020-02-24 14:08] LABS: MICROSCOPIC NOT IND
--- NOTE | 2020-02-24 15:29 | NUR ---
PT TO IR FOR PARACENTESIS
[2020-02-24] MEDS ORDERED: LIDOCAINE 1%, 10ML ONE (15:30)
[2020-02-24 16:36] VITALS: BP 128/74
== END 2020-02-24 16:38 | disposition home or self-care (01) ==
LOC: ED 13:56
DX: K70.30 Alcoholic cirrhosis of liver without ascites (principal); E80.6 Other disorders of bilirubin metabolism
CPT/HCPCS: 36415; 49083; 80053; 80307; 81003; 83690; 84703; 85025; 85610; 99285

== ENCOUNTER 2020-03-15 09:04 | Observation (INO) | payer MEDICAID ==
[~2020-03-15] VITALS: Ht 180.3 cm; Wt 85.5 kg
--- NOTE | 2020-03-15 10:20 | NUR ---
LEFT LEG NUMBNESS FOR ONE WEEK, DENIES BACK PAIN. HX OF LIVER CIRRHOSIS. PT REPORTS SOB SINCE THIS AM AND CHEST TIGHTNESS SINCE THIS AM. ecg in triage Placed on air sampling and monitoring Provider to bedside to explain poc
[2020-03-15 10:45] LABS: BASOPHILS % (AUTO) 3 % (0-1); EOSINOPHILS % (AUTO) 1 % (1-7); LYMPHOCYTES % (AUTO) 22 % (22-44); MEAN CORPUSCULAR HEMOGLOBIN 32.3 pg (27.0-34.8); MEAN CORPUSCULAR HGB CONC 34.2 g/dL (32.4-35.8); MEAN PLATELET VOLUME 7.6 fL (7.4-10.4); MONOCYTES % (AUTO) 10 % (2-9); NEUTROPHILS % (AUTO) 64 % (42-75); PLATELET COUNT 126 x10^3/uL (130-400); RED BLOOD COUNT 3.91 x10^6/uL (3.82-5.3); RED CELL DISTRIBUTION WIDTH 14.9 % (9.6-15.2)
--- NOTE | 2020-03-15 10:56 | NUR ---
RECEIVED REPORT FROM VERONA RUVALCABA. ASSUMING CARE AT THIS TIME. PT RESTING ON RODOLFO. SOFIA. AWAITING LAB RESULTS.
--- NOTE | 2020-03-15 10:57 | NUR ---
REPORT TO JOHNY RUVALCABA
[2020-03-15 10:59] LABS: ANION GAP 8 mmol/L (5-15); CHLORIDE 108 mmol/L (98-107)
[2020-03-15 11:00] LABS: ALANINE AMINOTRANSFERASE 41 U/L (12-78); ALBUMIN 3.1 g/dL (3.4-5.0); ALKALINE PHOSPHATASE 131 U/L (45-117); BILIRUBIN,TOTAL 2.8 mg/dL (0.2-1.0); CALCIUM 8.9 mg/dL (8.5-10.1); CREATININE 0.69 mg/dL (0.55-1.02); TOTAL PROTEIN 8.7 g/dL (6.4-8.2); TROPONIN I 0.067 ng/mL (0.000-0.045)
[2020-03-15 11:03] LABS: MD NO
--- NOTE | 2020-03-15 11:12 | NUR ---
ALL RESULTS ARE BACK AT THIS TIME. CHART UP FOR RECHECK.
--- NOTE | 2020-03-15 11:20 | NUR ---
RECEIVED NEW ORDER FOR LAB.
[2020-03-15] MEDS ORDERED: SPIR50TA4 PO (11:34)
[2020-03-15] MEDS ORDERED: POTASSIUM CHLORIDE 20 MEQ TAB.ER.PRT ONE (11:53)
[2020-03-15] MEDS ORDERED: LORazepam 1MG TABLET ONE (11:53)
[2020-03-15] MEDS ORDERED: ASPIRIN 81 MG TABLET CHEW ONE (11:54)
[2020-03-15] MEDS ORDERED: ASPIRIN 81 MG TABLET CHEW PO ONE (12:00)
[2020-03-15] MEDS ORDERED: POTASSIUM CHLORIDE 20 MEQ TAB.ER.PRT PO ONE (12:00)
[2020-03-15] MEDS ORDERED: SODIUM CHLORIDE FLUSH 10ML SYR IVF ONE (12:00)
[2020-03-15] MEDS ORDERED: LORazepam 1MG TABLET PO ONE (12:00)
[2020-03-15 12:04] LABS: INTERNATIONAL NORMALIZED RATIO 1.49 (0.93-1.1); PROTHROMBIN TIME 15.7 Seconds (9.6-11.5)
[2020-03-15] MEDS ORDERED: OXYcodone IR 5MG TABLET PO PRN (12:30)
[2020-03-15] MEDS ORDERED: LABETALOL 5MG/ML, 20ML IVPush PRN (12:30)
[2020-03-15] MEDS ORDERED: ONDANSETRON 2MG/ML, 2ML IVPush PRN (12:30)
[2020-03-15] MEDS ORDERED: BACLOFEN 10 MG TABLET PO PRN (12:30)
[2020-03-15] MEDS ORDERED: ONDANSETRON ODT 4 MG PO PRN (12:30)
[2020-03-15] MEDS ORDERED: BUTALB/APAP/CAFFEINE 50MG/325MG/40MG PO PRN (12:30)
[2020-03-15] MEDS ORDERED: MELATONIN 5 MG TABLET PO PRN (12:30)
[2020-03-15] MEDS ORDERED: ENALAPRILAT 1.25 MG/ML, 2ML IVPush PRN (12:30)
--- NOTE | 2020-03-15 12:57 | NUR ---
REPORT GIVEN TO BIRDIE RUVALCABA. DIET TRAY DELIVERED TO PT.
[2020-03-15 14:00] VITALS: BP 148/87
[2020-03-15] MEDS ORDERED: MAGNESIUM SULFATE PMX 2GM/50ML 50 ML IV ONE (14:30)
[2020-03-15] MEDS: ENOXAPARIN 40 MG/0.4 ML SQ SCH (14:48)
[2020-03-15 19:21] VITALS: BP 138/78
[2020-03-16 01:11] VITALS: BP 150/88
[2020-03-16 06:30] LABS: ALBUMIN 2.5 g/dL (3.4-5.0); CALCIUM 8.5 mg/dL (8.5-10.1); CHLORIDE 110 mmol/L (98-107)
[2020-03-16 06:36] LABS: ALANINE AMINOTRANSFERASE 31 U/L (12-78); ALKALINE PHOSPHATASE 103 U/L (45-117); ANION GAP 6 mmol/L (5-15); CREATININE 0.63 mg/dL (0.55-1.02); TOTAL PROTEIN 6.9 g/dL (6.4-8.2)
[2020-03-16] MEDS ORDERED: MAGNESIUM SULFATE PMX 2GM/50ML 50 ML IV ONE (07:30)
[2020-03-16 07:56] LABS: TROPONIN I 0.062 ng/mL (0.000-0.045)
[2020-03-16 07:58] VITALS: BP 151/88
[2020-03-16] MEDS ORDERED: REGADENOSON 0.4 MG/5 ML SYRINGE ONE (08:57)
[2020-03-16] MEDS ORDERED: SPIRONOLACTONE 50 MG TABLET PO SCH (09:00)
[2020-03-16] MEDS ORDERED: SENNA/DOCUSATE TABLET PO SCH (09:00)
[2020-03-16] MEDS ORDERED: FUROSEMIDE 20 MG TABLET PO SCH (09:00)
[2020-03-16] MEDS: ENOXAPARIN 40 MG/0.4 ML SQ SCH (12:32)
[2020-03-16 13:17] VITALS: BP 154/91
== END 2020-03-16 17:00 | disposition home or self-care (01) ==
LOC: ED 10:25 → INTOOBSV 11:48 → EDIP 11:48 → 5SO 13:41 → DCLOUNGE 03-16 16:52
PROVIDERS: ADMIT Family Medicine; ATTEND Family Medicine
DX: R07.89 Other chest pain (principal); R20.0 Anesthesia of skin; R20.2 Paresthesia of skin; K70.40 Alcoholic hepatic failure without coma; K70.9 Alcoholic liver disease, unspecified; I10 Essential (primary) hypertension; S93.492A Sprain of other ligament of left ankle, initial encounter; R79.89 Other specified abnormal findings of blood chemistry; E87.6 Hypokalemia; K76.6 Portal hypertension; R79.1 Abnormal coagulation profile; N28.9 Disorder of kidney and ureter, unspecified; E83.42 Hypomagnesemia; F41.9 Anxiety disorder, unspecified; F10.10 Alcohol abuse, uncomplicated; I25.2 Old myocardial infarction; X50.1XXA Overexertion from prolonged static or awkward postures, initial encounter; Z91.040 Latex allergy status; Y93.89 Activity, other specified; Y92.89 Other specified places as the place of occurrence of the external cause
CPT/HCPCS: 36415; 71045; 78452; 80053; 83735; 84484; 85025; 85610; 93005; 93017; 96365; 96366; 96372; 99285; A9502; C9898; G0378; J1650; J2785; J3475